=== PATIENT | female | born 1940 | race Caucasian/White ===

== ENCOUNTER 2019-10-31 11:10 | Emergency (ER) | payer MEDICARE, OTHER ==
[~2019-10-31] VITALS: Ht 167.6 cm; Wt 70.3 kg
--- NOTE | 2019-10-31 11:31 | NUR ---
ED Nurse Note: pt presents to ED c/o dizziness, N/V and R ear pain. pt states that 6 days ago she was seen and treated at urgent care for a R ear infection. pt states that the abx they prescribed her has made her "feel sick." pt reports "pain everywhere" and "feeling sick."
--- NOTE | 2019-10-31 11:32 | NUR ---
ED Nurse Note: pt reports a negative COVID test 6 days ago
[2019-10-31 11:39] VITALS: BP 90/69
--- NOTE | 2019-10-31 11:40 | NUR ---
ED Nurse Note: pt went down to CT via gurney with technical writer and editor. pt in stable condition
--- NOTE | 2019-10-31 11:50 | NUR ---
ED Nurse Note: pt back from CT, pt placed on monitor
[2019-10-31] MEDS ORDERED: Omnipaque-300 100ml vial INJ PRN (12:00)
[2019-10-31] MEDS ORDERED: Meclizine 25mg tab ORAL ONE (12:00)
--- NOTE | 2019-10-31 12:00 | NUR ---
ED Nurse Note: blood sent to lab, pt unable to give urine sample at this time
[2019-10-31 13:05] LABS: BASOPHILS % (AUTO) 0.8 % (0.0-2.0); HEMATOCRIT 35.8 % (37.0-47.0); HEMOGLOBIN 13.4 G/DL (12.0-16.0); LYMPHOCYTES % (AUTO) 11.5 % (20.0-45.0); MEAN CORPUSCULAR VOLUME 85 FL (80-99); MONOCYTES % (AUTO) 4.7 % (1.0-10.0); PLATELET COUNT 140 K/UL (150-450); RED BLOOD COUNT 4.22 M/UL (4.20-5.40); RED CELL DISTRIBUTION WIDTH 10.6 % (11.6-14.8); WHITE BLOOD COUNT 8.9 K/UL (4.8-10.8)
[2019-10-31 13:30] LABS: BILIRUBIN,TOTAL 1.1 MG/DL (0.2-1.0); CALCIUM 9.6 MG/DL (8.5-10.1); CREATININE 1.3 MG/DL (0.55-1.30); POTASSIUM 3.3 MMOL/L (3.5-5.1)
[2019-10-31 13:32] LABS: BILIRUBIN,DIRECT 0.3 MG/DL (0.0-0.3)
--- NOTE | 2019-10-31 13:53 | Diagnostic Imaging Report ---
Indications: Headaches and confusion Technique: Spiral acquisitions obtained through the brain. Angled axial and coronal 5 x 5 mm slices were reconstructed. Total dose length product 992 mGycm. CTDI vol(s) 53 mGy. Dose reduction achieved using automated exposure control Comparison: None. Findings: There is age-related enlargement of the ventricles and extra axial CSF spaces. No acute adrenal hemorrhage or edema. No mass effect nor midline shift. Normal arreola-white differentiation otherwise. The calvarium is intact. The mastoids are clear. The visualized orbits and sinuses are unremarkable. Impression: Chronic and age-related changes Negative for acute intracranial bleed or mass effect The CT scanner at [facility] is accredited by the [employer] and the scans are performed using protocols designed to limit radiation exposure to as low as reasonably achievable to attain images of sufficient resolution adequate for diagnostic evaluation.
[2019-10-31] MEDS ORDERED: MECLIZINE HCL25 MG ORAL (14:32)
[2019-10-31] MEDS ORDERED: ONDANSETRON ODT4 MG BC (14:32)
[2019-10-31 14:45] VITALS: BP 141/80
--- NOTE | 2019-10-31 14:45 | NUR ---
ER DISCHARGE NOTE: Patient is cleared to be discharged per ERMD, pt is aox4, on room air, with stable vital signs. pt was given dc and prescription instructions, pt was able to verbalize understanding, pt id band and iv site removed without complications. pt is able to ambulate with steady gait. pt took all belongings.
--- NOTE | 2019-10-31 14:58 | Diagnostic Imaging Report ---
Clinical Indication: Abdominal pain Technique: No oral contrast utilized, per emergency room physician request IV administration nonionic contrast. Venous phase spiral acquisition obtained through the abdomen and pelvis. Multiplanar reconstructions were generated. Total dose length product 292 mGycm. CTDIvol(s) 5 mGy. Dose reduction achieved using automated exposure control Comparison: none Findings: Lack of enteric contrast limits assessment of the GI tract. There are colonic diverticula. No evidence of diverticulitis. The appendix is only questionably visualized. No findings to suggest acute appendicitis are evident. No small bowel distention. No free or loculated intraperitoneal gas or fluid is evident. The distal esophagus, stomach, duodenum are unremarkable. The liver demonstrates a subcentimeter low-attenuation lesion in segment 7, too small to characterize.. The gallbladder and bile ducts are unremarkable. The pancreas is unremarkable. The spleen is borderline enlarged, 13 cm long axis dimension. The adrenals and left kidney are unremarkable. The right kidney demonstrates one or more subcentimeter low-attenuation lesions, too small to characterize. No retroperitoneal or mesenteric mass or adenopathy. No pelvic mass or adenopathy. Uterus and adnexal structures appear unremarkable. The bladder is unremarkable. The included lung bases demonstrate posterior dependent atelectatic changes. The bones demonstrate degenerative spondylosis changes. Impression: Limited assessment of the GI tract, due to lack of enteric contrast administration No definite acute abnormality Borderline splenomegaly Colonic diverticulosis. No evidence of diverticulitis Is incidental findings of posterior degenerative pulmonary atelectatic changes and degenerative spondylosis changes Subcentimeter low-attenuation liver and right renal lesions, too small to characterize, most likely benign simple cysts The CT scanner at [facility] is accredited by the [employer] and the scans are performed using protocols designed to limit radiation exposure to as low as reasonably achievable to attain images of sufficient resolution adequate for diagnostic evaluation.
--- NOTE | 2019-10-31 15:59 | NUR ---
Patrick musa in [facility] - 10/31/19 at 1600 by ANKUSH [id number]
--- NOTE | 2019-11-03 14:51 | Cardiology Report ---
APPROVED REPORT EKG Measurement Heart [id number] <Conclusion> Normal sinus rhythm Nonspecific ST abnormality Abnormal ECG
== END 2019-10-31 14:45 | disposition home or self-care (01) ==
LOC: EMR 14:09
DX: R11.2 Nausea with vomiting, unspecified (principal); R51 Headache; R41.82 Altered mental status, unspecified
CPT/HCPCS: 36415; 70450; 74177; 80053; 82248; 83690; 84484; 85025; 93005; 96374; 99284; J2405; J7040; Q9965; J8499